=== PATIENT | male | born 1975 | race Caucasian/White ===

== ENCOUNTER 2016-08-10 10:20 | Inpatient (IN) | payer BC ==
[2016-08-10 12:35] VITALS: BMI 25.0
--- NOTE | 2016-08-10 18:15 | HP ---
COWS - Scale Resting Pulse: 0= [place] 80 or Below Sweatin= Chills/Flushing Restless Observation: 3= Extraneous Movement Pupil Size: 0= Normal to Room Light Bone or Joint Aches: 2= Severe Diffuse Aches Runny Nose/ Eye Tearin= Runny Nose/Eyes GI Upset > 30mins: 1= Stomach Cramp Tremor Observation: 2= Slight Tremor Visible Yawning Observation: 1= 1-2x During Session Anxiety or Irritability: 2=Irritable/Anxious Goose Flesh Skin: 0=Smooth Skin COWS Score: 14 CIWA Score - CIWA Score Nausea/Vomitin-Mild Nausea/No Vomiting Muscle Tremors: 4-Moderate,w/Arms Extend Anxiety: 1-Mildly Anxious Agitation: 4-Moderately Restless Paroxysmal Sweats: 1-Minimal Palms Moist Orientation: 3-Disoriented Date>2 days Tacttile Disturbances: 0-None Auditory Disturbances: 0-None Visual Disturbances: 0-None Headache: 0-None Present CIWA-Ar Total Score: 14 Admission [facility] - HPI Chief Complaint: WITHDRAWAL SX Allergies/Adverse Reactions: Allergies Allergy/AdvReac Type Severity Reaction Status Date / Time No Known Allergies Allergy Verified 01/11/16 12:12 History of Present Illness: 40 YEARS OLD MALE WITH LONG HISTORY OF ALCOHOL OPIUM XANAX NICOTINE DEPENDENCE DENIES MEDICAL ISSUE HAS DEPRESSION IS ADMITTED TO DETOX Exam Limitations: No Limitations - Ebola screening Have you traveled outside of the country in the last 21 days: No Have you had contact with anyone from an Ebola affected area: No Have you been sick,other than usual withdrawal symptoms: No Do you have a fever: No - Review of Systems Constitutional: Chills, Loss of Appetite, Changes in sleep, Unintentional Wgt. Loss, Unexplained wgt Loss EENT: reports: No Symptoms Reported Respiratory: reports: SOB with Exertion Cardiac: reports: No Symptoms Reported GI: reports: Nausea, Poor Appetite, Poor Fluid Intake, Abdominal cramping : reports: No Symptoms Reported Musculoskeletal: reports: Back Pain, Joint Pain, Muscle Pain, Neck Pain Integumentary: reports: Change in Color (RIGHT AND LEFT INNER ELBOWS) Neuro: reports: Seizure (2014 COCAINE INDUCED), Tremors Endocrine: reports: No Symptoms Reported Hematology: reports: No Symptoms Reported Psychiatric: reports: Judgement Intact, Depressed Other Systems: Reviewed and Negative Patient History - Patient Medical History Hx Anemia: No Hx Asthma: No Hx Chronic Obstructive Pulmonary Disease (COPD): No Hx Cancer: No Hx Cardiac Disorders: No Hx Congestive Heart Failure: No Hx Hypertension: No Hx Hypercholesterolemia: No Hx Pacemaker: No HX Cerebrovascular Accident: No Hx Seizures: Yes (drug related seizures-last episode was a year ago) Hx Dementia: No Hx Diabetes: No Hx Gastrointestinal Disorders: No Hx Liver Disease: No Hx Genitourinary Disorders: No Hx Sexually Transmitted Disorders: No Hx Renal Disease (ESRD): No Hx Thyroid Disease: No Hx Human Immunodeficiency Virus (HIV): No (NEGATIVE HX LAST 2014) Hx Hepatitis C: Yes Hx Depression: Yes Hx Suicide Attempt: No Hx Bipolar Disorder: No Hx Schizophrenia: No - Patient Surgical History Past Surgical History: Yes Hx Neurologic Surgery: No Hx Cataract Extraction: No Hx Cardiac Surgery: No Hx Lung Surgery: No Hx Breast Surgery: No Hx Breast Biopsy: No Hx Abdominal Surgery: No Hx Appendectomy: No Hx Cholecystectomy: No Hx Genitourinary Surgery: No Hx Orthopedic Surgery: No Other Surgical History: 2011 repair L bicep(chainsaw) 04/2013 rt forearm sx Anesthesia Reaction: No - PPD History Previous Implant?: Yes Documented Results: Negative w/proof Implanted On Prior [facility] Admission?: Yes Date: 08/11/15 Results: 0 mm PPD to be Administered?: Yes - Smoking Cessation Smoking history: Current every day smoker Have you smoked in the past 12 months: Yes Aproximately how many cigarettes per day: 40 Cigars Per Day: 0 Hx Chewing Tobacco Use: No Initiated information on smoking cessation: Yes 'Breaking Loose' booklet given: 08/10/16 - Substance & Tx. History Hx Alcohol Use: Yes Hx Substance Use: Yes Substance Use Type: Alcohol, Cocaine, Heroin, Tranquilizers Hx Substance Use Treatment: Yes (01/10-01/14/17 [facility]) - Substances Abused Heroin Route: Injection Frequency: Daily Amount used: 30 bags Age of first use: 18 Date of Last Use: 08/09/16 Cocaine Route: Injection Frequency: 1-3 times last 30 days Amount used: $50-100 Age of first use: 16 Date of Last Use: 08/09/16 Alcohol-whisky Route: Oral Frequency: Daily Amount used: 2 1/2 pts. WHISKY Age of first use: 13 Date of Last Use: 08/08/16 Xanax Route: Oral Frequency: Daily Amount used: 12-16 mg. Age of first use: 24 Date of Last Use: 08/09/16 Family Disease History - Family Disease History Family History: Unremarkable (ADOPTED) Admission Physical Exam [facility] - Vital Signs Vital Signs: Vital Signs - 24 hr 08/10/16 12:32 Temperature 97.4 F L Pulse Rate 80 Respiratory 18 Rate Blood Pressure 127/77 - Physical General Appearance: Yes: Appropriately Dressed, Mild Distress, Thin, Tremorous, Irritable, Sweating, Anxious HEENTM: Yes: Hearing grossly Normal, Normal ENT Inspection, Normocephalic, Normal Voice Respiratory: Yes: Chest Non-Tender, No Respiratory Distress, No Accessory Muscle Use, Hyperresonant, Inspiration Neck: Yes: Supple, Trachea in good position Breast: Yes: Breasts Symetrical Cardiology: Yes: Regular Rhythm, Regular Rate, S1, S2 Abdominal: Yes: Non Tender, Soft Genitourinary: Yes: Within Normal Limits Back: Yes: Normal Inspection Musculoskeletal: Yes: full range of Motion, Gait Steady, Back pain, Muscle Pain Extremities: Yes: Normal Range of Motion, Non-Tender, Tremors Neurological: Yes: Alert, Motor Strength 5/5, Normal Response, Depressed Affect Integumentary: Yes: Warm, Track [place] Lymphatic: Yes: Within Normal Limits - Diagnostic (1) Alcohol dependence with uncomplicated withdrawal Current Visit: Yes Status: Acute (2) Opioid dependence with withdrawal Current Visit: Yes Status: Acute (3) Uncomplicated sedative, hypnotic or anxiolytic withdrawal Current Visit: Yes Status: Acute (4) Hepatitis C Current Visit: Yes Status: Resolved Qualifiers: Viral hepatitis chronicity: chronic Hepatic coma status: without hepatic coma Qualified Code(s): B18.2 - Chronic viral hepatitis C (5) Nicotine dependence Current Visit: Yes Status: Acute Qualifiers: Nicotine product type: cigarettes Substance use status: in withdrawal Qualified Code(s): F17.213 - Nicotine dependence, cigarettes, with withdrawal (6) Seizure Current Visit: Yes Status: Inactive Qualifiers: Convulsion type: unspecified Qualified Code(s): R56.9 - Unspecified convulsions Cleared for Admission [facility] - Detox or Rehab [facility] Level of Care: Medically Managed Detox Regimen/Protocol: Methadone/Librium [facility] Breath Alcohol Content Breath Alcohol Content: 0 Urine Drug Screen - Results Drug Screen Negative: No Urine Drug Screen Results: LIGIA-Cocaine, OPI-Opiates, BZO-Benzodiazepines, MTD- Methadone
[2016-08-10] MEDS ORDERED: MAG HYDROX/AL HYDROX/SIMETH 30 ML UNIT-DOSE CUP PO PRN (18:17)
[2016-08-10] MEDS ORDERED: NICOTINE POLACRILEX 4 MG GUM BC PRN (18:17)
[2016-08-10] MEDS ORDERED: LOPERAMIDE HCL 2 MG CAPSULE PO PRN (18:17)
[2016-08-10] MEDS ORDERED: guaiFENesin/D-METHORPHAN HB 10 ML UNIT-DOSE CUPS PO PRN (18:17)
[2016-08-10] MEDS ORDERED: MAGNESIUM CITRATE 300 ML BOTTLE PO PRN (18:17)
[2016-08-10] MEDS ORDERED: IBUPROFEN 400 MG TABLET (FP) PO PRN (18:17)
[2016-08-10] MEDS ORDERED: ACETAMINOPHEN 325 MG TABLET (FP) PO PRN (18:17)
[2016-08-10] MEDS ORDERED: MENTHOL/PHENOL 1 EACH UD MM PRN (18:17)
[2016-08-10] MEDS ORDERED: P-EPHED 60MG/TRIPROLIDI 2.5MG TABLET PO PRN (18:17)
[2016-08-10] MEDS ORDERED: METHADONE HCL 10 MG TABLET (FOR DETOX USE ONLY) PO ONE ×2 (18:17→23:00)
[2016-08-10] MEDS ORDERED: MAGNESIUM HYDROX 2400MG/30ML ORAL SUSPENSION 30 ML CUP PO PRN (18:17)
[2016-08-10] MEDS ORDERED: METHADONE HCL 10 MG TABLET (FOR DETOX USE ONLY) ONE (20:21)
[2016-08-10] MEDS: chlordiazePOXIDE HCL 25 MG CAPSULE PO PRN (20:31)
[2016-08-10] MEDS: THIAMINE HCL 100 MG TABLET (FP) PO SCH (22:53)
[2016-08-10] MEDS: chlordiazePOXIDE HCL 25 MG CAPSULE PO SCH (22:54)
[2016-08-11] MEDS: chlordiazePOXIDE HCL 25 MG CAPSULE PO SCH ×4 (05:43→22:19)
--- NOTE | 2016-08-11 09:46 | EKG ---
Test Reason : Blood Pressure : / mmHG Vent. Rate : 060 BPM Atrial Rate : 060 BPM P-R Int : 144 ms QRS Dur : 086 ms QT Int : 400 ms P-R-T Axes : 047 019 -04 degrees QTc Int : 400 ms NORMAL SINUS RHYTHM NONSPECIFIC ST ABNORMALITY NO PREVIOUS ECGS AVAILABLE Confirmed by MELISSA SCHREIBER MD ([id number]) on 08/11/2016 9:46:23 AM Referred By: Ned Pena Confirmed By:MELISSA SCHREIBER MD
[2016-08-11 09:58] LABS: MCH 29.7 pg (25.7-33.7); MCHC 33.3 g/dl (32.0-35.9); MEAN CELL VOLUME 89.1 fl (80-96); MEAN PLT VOLUME 8.8 fl (7.5-11.1); PLATELET COUNT 184 K/MM3 (134-434); RDW 14.3 % (11.9-15.9); WHITE BLOOD COUNT 7.2 K/mm3 (4.0-10.0)
[2016-08-11] MEDS ORDERED: METHADONE HCL 10 MG TABLET (FOR DETOX USE ONLY) PO SCH (10:00)
[2016-08-11 10:44] LABS: ALBUMIN 3.7 g/dl (3.4-5.0); ALK PHOS 66 U/L (45-117); ANION GAP 6 (8-16); BILIRUBIN,TOTAL 0.2 mg/dL (0.2-1.0); CALCIUM 9.5 mg/dL (8.5-10.1); CO2 32 mmol/L (21-32); CREATININE 0.9 mg/dL (0.7-1.3); GLUCOSE,RANDOM 98 mg/dL (74-106); SGOT/AST 26 U/L (15-37); SGPT/ALT 24 U/L (12-78)
[2016-08-11] MEDS: PRENATAL VITAMINS W/ FOLIC ACID TABLET (FP) PO SCH (11:15)
[2016-08-11] MEDS: NICOTINE 21 MG/24 HOURS TOPICAL PATCH TD SCH (11:16)
--- NOTE | 2016-08-11 11:38 | PN ---
[facility] CIWA - CIWA Score Nausea/Vomitin Muscle Tremors: 3 Anxiety: 3 Agitation: 3 Paroxysmal Sweats: 1-Minimal Palms Moist Orientation: 0-Oriented Tacttile Disturbances: 1-Very Mild Itch/Numbness Auditory Disturbances: 1-Very Mild Visual Disturbances: 1-Very Mild Sensitivity Headache: 2-Mild CIWA-Ar Total Score: 18 [facility] COWS - Scale Resting Pulse: 0= [place] 80 or Below Sweatin= Chills/Flushing Restless Observation: 3= Extraneous Movement Pupil Size: 1= Pupils >than Normal Bone or Joint Aches: 2= Severe Diffuse Aches Runny Nose/ Eye Tearin= Runny Nose/Eyes GI Upset > 30mins: 2= Nausea/Diarrhea Tremor Observation of Outstretched Hands: 2= Slight Tremor Visible Yawning Observation: 1= 1-2x During Session Anxiety or Irritability: 2=Irritable/Anxious Goose Flesh Skin: 0=Smooth Skin COWS Score: 16 S Progress Note (SOAP) Subjective: alert,irritable,anxious,interrupted sleep,tremor,pain in the body and back Objective: 08/11/16 11:36 Vital Signs Temperature 97.9 F 08/11/16 10:52 Pulse Rate 67 08/11/16 10:52 Respiratory Rate 18 08/11/16 10:52 Blood Pressure 125/75 08/11/16 10:52 O2 Sat by Pulse Oximetry (%) ekg nsr normal ecg Laboratory Last Values WBC 7.2 K/mm3 (4.0-10.0) 08/11/16 06:00 RBC 4.43 M/mm3 (4.00-5.60) 08/11/16 06:00 Hgb 13.1 GM/dL (11.7-16.9) 08/11/16 06:00 Hct 39.5 % (35.4-49) 08/11/16 06:00 MCV 89.1 fl (80-96) 08/11/16 06:00 MCHC 33.3 g/dl (32.0-35.9) 08/11/16 06:00 RDW 14.3 % (11.9-15.9) 08/11/16 06:00 Plt Count 184 K/MM3 (134-434) 08/11/16 06:00 MPV 8.8 fl (7.5-11.1) 08/11/16 06:00 Sodium 141 mmol/L (136-145) 08/11/16 06:00 Potassium 4.1 mmol/L (3.5-5.1) 08/11/16 06:00 Chloride 103 mmol/L (98-107) 08/11/16 06:00 Carbon Dioxide 32 mmol/L (21-32) D 08/11/16 06:00 Anion Gap 6 (8-16) L 08/11/16 06:00 BUN 12 mg/dL (7-18) 08/11/16 06:00 Creatinine 0.9 mg/dL (0.7-1.3) 08/11/16 06:00 Creat Clearance w eGFR > 60 (>60) 08/11/16 06:00 Random Glucose 98 mg/dL (74-106) 08/11/16 06:00 Calcium 9.5 mg/dL (8.5-10.1) 08/11/16 06:00 Total Bilirubin 0.2 mg/dL (0.2-1.0) D 08/11/16 06:00 AST 26 U/L (15-37) D 08/11/16 06:00 ALT 24 U/L (12-78) 08/11/16 06:00 Alkaline Phosphatase 66 U/L (45-117) 08/11/16 06:00 Total Protein 7.0 g/dl (6.4-8.2) 08/11/16 06:00 Albumin 3.7 g/dl (3.4-5.0) 08/11/16 06:00 labs pending Assessment: 08/11/16 11:38 withdrawal symptom Plan: continue detox
--- NOTE | 2016-08-11 13:17 | CONSULT ---
[facility] Psychiatric Consult - Data Date of interview: 08/11/16 Admission source: [facility] Identifying data: Another admission to [facility] for this 40 y/o male seeking detox treatment on for cocaine,alcohol,heroin and benzodiazepine (xanax) dependence.Patient is ,a father of one,domiciled and currently unemployed (trained chin). Substance Abuse History: - Smoking Cessation. Smoking history: Current every day smoker. Have you smoked in the past 12 months: Yes. Aproximately how many cigarettes per day: 40. Cigars Per Day: 0. Hx Chewing Tobacco Use: No. Initiated information on smoking cessation: Yes. 'Breaking Loose' booklet given : 08/10/16. - Substance & Tx. History. Hx Alcohol Use: Yes. Hx Substance Use : Yes. Substance Use Type: Alcohol, Cocaine, Heroin, Tranquilizers. Hx Substance Use Treatment: Yes (01/10-01/14/17 [facility]). - Substances Abused. * * Heroin. Route: Injection. Frequency: Daily. Amount used: 30 bags. Age of first use: 18. Date of Last Use: 08/09/16. Cocaine. Route: Injection. Frequency: 1-3 times last 30 days. Amount used: $50-100. Age of first use: 16. Date of Last Use: 08/09/16. Alcohol-whisky. Route: Oral. Frequency: Daily. Amount used: 2 1/2 pts. WHISKY. Age of first use: 13. Date of Last Use : 08/08/16. Xanax. Route: Oral. Frequency: Daily. Amount used: 12-16 mg. Age of first use: 24. Date of Last Use: 08/09/16. Confirmed by patient. Medical History: Hepatitis C and a history of withdrawal seizures.Noted history of orthopedic surgery for repair of left biceps (2011). Psychiatric History: Patient denies. Physical/Sexual Abuse/Trauma History: Patient denies. Additional Comment: Urine Drug Screen Results: LIGIA-Cocaine, OPI-Opiates, BZO- Benzodiazepines, MTD-Methadone.Noted. Mental Status Exam - Mental Status Exam Alert and Oriented to: Time, Place, Person Cognitive Function: Good Patient Appearance: Well Groomed (tattoos on forearms) Mood: Hopeful, Euthymic Affect: Appropriate, Normal Range Patient Behavior: Fatigued, Cooperative Speech Pattern: Clear Voice Loudness: Normal Thought Process: Goal Oriented Thought Disorder: Not Present Hallucinations: Denies Suicidal Ideation: Denies Homicidal Ideation: Denies Insight/Judgement: Poor Sleep: Fair Appetite: Good Muscle strength/Tone: Normal Gait/Station: Normal Psychiatric Findings - Problem List ([place] 1, 2,3) (1) Alcohol dependence with uncomplicated withdrawal Current Visit: Yes Status: Acute (2) Opioid dependence with withdrawal Current Visit: Yes Status: Acute (3) Uncomplicated sedative, hypnotic or anxiolytic withdrawal Current Visit: Yes Status: Acute (4) Cocaine dependence, uncomplicated Current Visit: Yes Status: Acute (5) Drug-induced mood disorder Current Visit: Yes Status: Suspected (6) Nicotine dependence Current Visit: Yes Status: Acute Qualifiers: Nicotine product type: cigarettes Substance use status: in withdrawal Qualified Code(s): F17.213 - Nicotine dependence, cigarettes, with withdrawal (7) Hepatitis C Current Visit: Yes Status: Resolved Qualifiers: Viral hepatitis chronicity: chronic Hepatic coma status: without hepatic coma Qualified Code(s): B18.2 - Chronic viral hepatitis C (8) Alcohol withdrawal seizure Current Visit: No Status: Resolved Qualifiers: Complication of substance-induced condition: uncomplicated Qualified Code(s): F10.230 - Alcohol dependence with withdrawal, uncomplicated - Initial Treatment Plan Initial Treatment Plan: Psychoeducation.Detoxification.Observation.
[2016-08-11 17:07] LABS: URINE APPEARANCE CLEAR; URINE BILIRUBIN NEGATIVE (NEGATIVE); URINE BLOOD NEGATIVE (NEGATIVE); URINE COLOR YELLOW; URINE GLUCOSE (UA) NEGATIVE (NEGATIVE); URINE KETONE NEGATIVE (NEGATIVE); URINE LEUK ESTERASE NEGATIVE (NEGATIVE); URINE NITRITE NEGATIVE (NEGATIVE); URINE PROTEIN NEGATIVE (NEGATIVE); URINE UROBILINOGEN NEGATIVE E.U./dl (0.2-1.0)
[2016-08-11] MEDS: chlordiazePOXIDE HCL 25 MG CAPSULE PO PRN (19:47)
[2016-08-11] MEDS: cloNIDine HCL 0.1 MG TABLET PO SCH (22:19)
[2016-08-11] MEDS: THIAMINE HCL 100 MG TABLET (FP) PO SCH (22:19)
[2016-08-11] MEDS: CYCLOBENZAPRINE HCL 10 MG TABLET (FP) PO PRN (22:19)
[2016-08-11] MEDS: diphenhydrAMINE HCL 50 MG CAPSULE PO PRN (22:20)
[2016-08-12] MEDS: chlordiazePOXIDE HCL 25 MG CAPSULE PO SCH ×3 (05:34→18:17)
[2016-08-12] MEDS: cloNIDine HCL 0.1 MG TABLET PO SCH ×2 (11:08→22:35)
[2016-08-12] MEDS: METHADONE HCL 5 MG TABLET (FOR DETOX USE ONLY) PO SCH (11:08)
[2016-08-12] MEDS: PRENATAL VITAMINS W/ FOLIC ACID TABLET (FP) PO SCH (11:08)
[2016-08-12] MEDS: NICOTINE 21 MG/24 HOURS TOPICAL PATCH TD SCH (11:10)
--- NOTE | 2016-08-12 13:32 | PN ---
[facility] CIWA - CIWA Score Nausea/Vomitin-No Nausea/No Vomiting Muscle Tremors: 3 Anxiety: 4-Mod. Anxious/Guarded Agitation: 4-Moderately Restless Paroxysmal Sweats: 3 Orientation: 0-Oriented Tacttile Disturbances: 1-Very Mild Itch/Numbness Auditory Disturbances: 0-None Visual Disturbances: 0-None Headache: 0-None Present CIWA-Ar Total Score: 15 B[facility] Progress Note (SOAP) Subjective: Anxiety,tremors,sweating,interrupted sleep,restless Objective: 08/12/16 13:29 Vital Signs - 8 hr 08/12/16 08/12/16 06:20 10:00 Temperature 97.5 F L 97.5 F L Pulse Rate 56 L 53 L Respiratory 18 16 Rate Blood Pressure 100/60 120/70 Laboratory Tests 08/11/16 08/11/16 08/11/16 06:00 06:00 06:00 WBC 7.2 RBC 4.43 Hgb 13.1 Hct 39.5 MCV 89.1 MCHC 33.3 RDW 14.3 Plt Count 184 MPV 8.8 Sodium 141 Potassium 4.1 Chloride 103 Carbon Dioxide 32 D Anion Gap 6 L BUN 12 Creatinine 0.9 Creat Clearance w eGFR > 60 Random Glucose 98 Calcium 9.5 Total Bilirubin 0.2 D AST 26 D ALT 24 Alkaline Phosphatase 66 Total Protein 7.0 Albumin 3.7 Urine Color Urine Appearance Urine pH Ur Specific [place] Urine Protein Urine Glucose (UA) Urine Ketones Urine Blood Urine Nitrite Urine Bilirubin Urine Urobilinogen Ur Leukocyte Esterase RPR Titer Nonreactive 08/11/16 11:45 WBC RBC Hgb Hct MCV MCHC RDW Plt Count MPV Sodium Potassium Chloride Carbon Dioxide Anion Gap BUN Creatinine Creat Clearance w eGFR Random Glucose Calcium Total Bilirubin AST ALT Alkaline Phosphatase Total Protein Albumin Urine Color Yellow Urine Appearance Clear Urine pH 6.0 Ur Specific [place] 1.020 Urine Protein Negative Urine Glucose (UA) Negative Urine Ketones Negative Urine Blood Negative Urine Nitrite Negative Urine Bilirubin Negative Urine Urobilinogen Negative Ur Leukocyte Esterase Negative RPR Titer labs noted Assessment: 08/12/16 13:29 Withdrawal sx. Plan: Continue detox
[2016-08-12] MEDS: chlordiazePOXIDE HCL 25 MG CAPSULE PO PRN (13:59)
[2016-08-12] MEDS: CYCLOBENZAPRINE HCL 10 MG TABLET (FP) PO PRN (22:35)
[2016-08-12] MEDS: chlordiazePOXIDE 5 MG CAPSULE PO SCH (22:35)
[2016-08-12] MEDS: THIAMINE HCL 100 MG TABLET (FP) PO SCH (22:35)
[2016-08-13] MEDS: chlordiazePOXIDE 5 MG CAPSULE PO SCH ×3 (05:51→18:03)
[2016-08-13] MEDS: METHADONE HCL 5 MG TABLET (FOR DETOX USE ONLY) PO SCH (10:45)
[2016-08-13] MEDS: PRENATAL VITAMINS W/ FOLIC ACID TABLET (FP) PO SCH (10:45)
[2016-08-13] MEDS: cloNIDine HCL 0.1 MG TABLET PO SCH ×2 (10:45→23:08)
[2016-08-13] MEDS: NICOTINE 21 MG/24 HOURS TOPICAL PATCH TD SCH (10:46)
--- NOTE | 2016-08-13 13:19 | PN ---
[facility] Progress Note (SOAP) Subjective: Sweating,interrupted sleep,restless Objective: 08/13/16 13:18 Vital Signs - 8 hr 08/13/16 08/13/16 06:41 10:00 Temperature 97.2 F L 97.5 F L Pulse Rate 46 L 61 Respiratory 18 18 Rate Blood Pressure 106/64 114/91 Laboratory Tests 08/11/16 08/11/16 08/11/16 06:00 06:00 06:00 WBC 7.2 RBC 4.43 Hgb 13.1 Hct 39.5 MCV 89.1 MCHC 33.3 RDW 14.3 Plt Count 184 MPV 8.8 Sodium 141 Potassium 4.1 Chloride 103 Carbon Dioxide 32 D Anion Gap 6 L BUN 12 Creatinine 0.9 Creat Clearance w eGFR > 60 Random Glucose 98 Calcium 9.5 Total Bilirubin 0.2 D AST 26 D ALT 24 Alkaline Phosphatase 66 Total Protein 7.0 Albumin 3.7 Urine Color Urine Appearance Urine pH Ur Specific [place] Urine Protein Urine Glucose (UA) Urine Ketones Urine Blood Urine Nitrite Urine Bilirubin Urine Urobilinogen Ur Leukocyte Esterase RPR Titer Nonreactive 08/11/16 11:45 WBC RBC Hgb Hct MCV MCHC RDW Plt Count MPV Sodium Potassium Chloride Carbon Dioxide Anion Gap BUN Creatinine Creat Clearance w eGFR Random Glucose Calcium Total Bilirubin AST ALT Alkaline Phosphatase Total Protein Albumin Urine Color Yellow Urine Appearance Clear Urine pH 6.0 Ur Specific [place] 1.020 Urine Protein Negative Urine Glucose (UA) Negative Urine Ketones Negative Urine Blood Negative Urine Nitrite Negative Urine Bilirubin Negative Urine Urobilinogen Negative Ur Leukocyte Esterase Negative RPR Titer labs noted Assessment: 08/13/16 13:18 Withdrawal sx. Plan: Continue detox
[2016-08-13] MEDS: chlordiazePOXIDE HCL 25 MG CAPSULE PO PRN (14:35)
[2016-08-13] MEDS: CYCLOBENZAPRINE HCL 10 MG TABLET (FP) PO PRN (14:37)
[2016-08-13] MEDS: IBUPROFEN 600 MG TABLET (FP) PO PRN (18:05)
[2016-08-13] MEDS: chlordiazePOXIDE HCL 10 MG CAPSULE PO SCH (23:09)
[2016-08-13] MEDS: THIAMINE HCL 100 MG TABLET (FP) PO SCH (23:09)
[2016-08-14] MEDS: chlordiazePOXIDE HCL 10 MG CAPSULE PO SCH ×3 (05:56→17:49)
[2016-08-14] MEDS ORDERED: METHADONE HCL 10 MG TABLET (FOR DETOX USE ONLY) PO SCH (10:00)
[2016-08-14] MEDS: IBUPROFEN 600 MG TABLET (FP) PO PRN ×2 (10:26→19:40)
[2016-08-14] MEDS: PRENATAL VITAMINS W/ FOLIC ACID TABLET (FP) PO SCH (10:26)
[2016-08-14] MEDS: NICOTINE 21 MG/24 HOURS TOPICAL PATCH TD SCH (10:26)
[2016-08-14] MEDS: cloNIDine HCL 0.1 MG TABLET PO SCH ×2 (10:30→22:31)
--- NOTE | 2016-08-14 10:53 | PN ---
S Progress Note (SOAP) Subjective: ALERT,IRRITABLE,ANXIOUS,INTERRUPTED SLEEP, Objective: 08/14/16 10:52 Vital Signs Temperature 99.1 F 08/14/16 10:00 Pulse Rate 64 08/14/16 10:00 Respiratory Rate 20 08/14/16 10:00 Blood Pressure 109/87 08/14/16 10:00 O2 Sat by Pulse Oximetry (%) Assessment: 08/14/16 10:52 WITHDRAWAL SYMPTOM Plan: CONTINUE DETOX,DISCHARGE IN AM
[2016-08-14] MEDS: CYCLOBENZAPRINE HCL 10 MG TABLET (FP) PO PRN ×2 (19:40→22:30)
[2016-08-14] MEDS: THIAMINE HCL 100 MG TABLET (FP) PO SCH (22:30)
[2016-08-14] MEDS: diphenhydrAMINE HCL 50 MG CAPSULE PO PRN (22:30)
[2016-08-15] MEDS ORDERED: METHADONE HCL 5 MG TABLET (FOR DETOX USE ONLY) PO SCH (06:00)
[2016-08-15] MEDS: IBUPROFEN 600 MG TABLET (FP) PO PRN (07:13)
--- NOTE | 2016-08-15 07:21 | PN ---
S Progress Note (SOAP) Subjective: ALERT,NO COMPLAINT Objective: 08/15/16 07:20 Vital Signs Temperature 96.8 F L 08/15/16 06:25 Pulse Rate 51 L 08/15/16 06:25 Respiratory Rate 18 08/15/16 06:25 Blood Pressure 128/77 08/15/16 06:25 O2 Sat by Pulse Oximetry (%) Assessment: 08/15/16 07:20 DETOX COMPLETED NO WITHDRAWAL SYMPTOM Plan: DISCHARGE TODAY,FOLLOW UP WITH AFTER CARE PROGRAM ARRANGEMENT
--- NOTE | 2016-08-15 07:24 | DS ---
[facility] Detox Discharge Summary Admission Date: 08/10/16 Discharge Date: 08/15/16 - History Present History: Alcohol Dependence, Opioid Dependence, Sedative Dependence Additional Comments: FOLLOW UP WITH AFTER CARE PROGRAM ARRANGEMENT Pertinent Past History: HEPATITIS C NICOTINE DEPENDENCE - Physical Exam Results Vital Signs: Vital Signs Temperature 96.8 F L 08/15/16 06:25 Pulse Rate 51 L 08/15/16 06:25 Respiratory Rate 18 08/15/16 06:25 Blood Pressure 128/77 08/15/16 06:25 O2 Sat by Pulse Oximetry (%) Pertinent Admission Physical Exam Findings: WITHDRAWAL SYMPTOM - Treatment Hospital Course: Detox Protocol Followed, Detoxed Safely, Responded well, Discharged Condition Good, Rehab Referral Accepted Patient has Accepted a Rehab Referral to: [facility] - Medication Discharge Medications: Ambulatory Orders NK [No Known Home Medication] 09/30/13 - Diagnosis (1) Alcohol dependence with uncomplicated withdrawal Current Visit: Yes Status: Acute (2) Cocaine dependence, uncomplicated Current Visit: Yes Status: Acute (3) Nicotine dependence Current Visit: Yes Status: Acute Qualifiers: Nicotine product type: cigarettes Substance use status: in withdrawal Qualified Code(s): F17.213 - Nicotine dependence, cigarettes, with withdrawal (4) Opioid dependence with withdrawal Current Visit: Yes Status: Acute (5) Uncomplicated sedative, hypnotic or anxiolytic withdrawal Current Visit: Yes Status: Acute (6) Drug-induced mood disorder Current Visit: Yes Status: Suspected (7) Hepatitis C Current Visit: Yes Status: Resolved Qualifiers: Viral hepatitis chronicity: chronic Hepatic coma status: without hepatic coma Qualified Code(s): B18.2 - Chronic viral hepatitis C (8) Seizure Current Visit: Yes Status: Inactive Qualifiers: Convulsion type: unspecified Qualified Code(s): R56.9 - Unspecified convulsions - AMA Did Patient Leave Against Medical Advice: No
[2016-08-15 09:35] VITALS: BP 122/71; PULSE 63; TEMP 97.2
== END 2016-08-15 10:00 | disposition home or self-care (01) | DRG 897 ==
LOC: YASAS 10:20 → Y6N 13:19
PROVIDERS: ADMIT Internal Medicine; ATTEND Internal Medicine
PROC: HZ2ZZZZ Detoxification Services for Substance Abuse Treatment (ICD-10-PCS; principal; 2016-08-10)
DX: F11.23 Opioid dependence with withdrawal (principal); F14.20 Cocaine dependence, uncomplicated; F13.230 Sedative, hypnotic or anxiolytic dependence with withdrawal, uncomplicated; F10.230 Alcohol dependence with withdrawal, uncomplicated; F17.213 Nicotine dependence, cigarettes, with withdrawal; F19.24 Other psychoactive substance dependence with psychoactive substance-induced mood disorder; B18.2 Chronic viral hepatitis C; Z86.69 Personal history of other diseases of the nervous system and sense organs
CPT/HCPCS: 36415; 80053; 81003; 85027; 86593; 93005; 93010